=== PATIENT | female | born 1930 | race Native Hawaiian/Other Pacific Islander ===

== ENCOUNTER 2018-11-21 14:47 | Emergency (ER) | payer OTHER ==
[~2018-11-21] VITALS: Ht 152.4 cm; Wt 56.8 kg
[~2018-11-21 14:47] MED LIST: ATOR20TA86 PO; DSS100 PO; LEVE500T53 PO; PANT40TA25 PO
[2018-11-21] MEDS ORDERED: PANT40TA25 PO (14:52)
[2018-11-21] MEDS ORDERED: QUIN5 PO (14:52)
[2018-11-21] MEDS ORDERED: GLIP5 PO (14:52)
[2018-11-21 14:59] LABS: GLUCOSE,POINT OF CARE 207 MG/DL (70-110)
[2018-11-21 16:08] LABS: BASOPHILS % (AUTO) 0.4 % (0.0-2.0); EOSINOPHILS % (AUTO) 0.5 % (1.0-6.0); LYMPHOCYTES # (AUTO) 1.2 K/uL (1.0-4.8); LYMPHOCYTES % (AUTO) 10.6 % (22.0-44.0); MEAN CORPUSCULAR HEMOGLOBIN 32.9 pg (26.0-34.0); MEAN CORPUSCULAR HGB CONC 33.4 G/dL (31.0-37.0); MEAN CORPUSCULAR VOLUME 99 fL (80-100); MONOCYTES # (AUTO) 0.7 K/uL (0.1-1.0); MONOCYTES % (AUTO) 5.9 % (2.0-9.0); NEUTROPHILS # (AUTO) 9.5 K/uL (1.8-7.7); NEUTROPHILS % (AUTO) 82.6 % (40.0-70.0); PLATELET COUNT (AUTO) 208 K/uL (150-450); RED BLOOD CELL COUNT(AUTO) 3.05 MIL/uL (4.00-5.20); RED CELL DISTRIBUTION WIDTH 13.3 % (11.5-14.5)
[2018-11-21 16:31] LABS: CALCIUM, TOTAL 8.5 mg/dL (8.8-10.5); CREATININE 1.53 mg/dL (0.60-1.30)
[2018-11-21 16:36] LABS: ALBUMIN 2.6 g/dL (3.4-5.0); BILIRUBIN,TOTAL 0.4 mg/dL (0.1-1.0); TOTAL PROTEIN, SERUM 6.6 g/dL (6.4-8.2)
[2018-11-21 18:06] LABS: APPEARANCE,URINE CLOUDY (CLEAR); BILIRUBIN,URINE NEGATIVE (NEGATIVE); GLUCOSE, URINE (UA) NEGATIVE (NEGATIVE); KETONES,URINE NEGATIVE (NEGATIVE); LEUKOCYTE ESTERASE ,URINE MODERATE (NEGATIVE); NITRATE,URINE NEGATIVE (NEGATIVE); OCCULT BLOOD,URINE MODERATE (NEGATIVE); PROTEIN,URINE NEGATIVE (NEGATIVE)
[2018-11-21 18:27] LABS: BACTERIA,URINE Many /HPF (None Seen); RBC,URINE 0-2 /HPF (0-2); SQUAMOUS EPITHELIAL CELL,UR Rare /LPF (None Seen)
[2018-11-21] MEDS ORDERED: SODIUM CHLORIDE 0.9% 500 ML IV ONE (18:45)
[2018-11-21] MEDS ORDERED: CefTRIAXone 1 GM/DEXTROSE 50 ML IV ONE (18:45)
[2018-11-21 19:18] VITALS: BP 144/67
== END 2018-11-21 19:42 | disposition home or self-care (01) ==
LOC: EMS 14:47
DX: N39.0 Urinary tract infection, site not specified (principal); E11.9 Type 2 diabetes mellitus without complications; I10 Essential (primary) hypertension; E78.00 Pure hypercholesterolemia, unspecified
CPT/HCPCS: 36415; 71045; 80053; 81001; 82962; 83690; 84484; 85025; 87077; 87086; 87186; 93005; 96365; 99285; J0696; J7040